=== PATIENT | female | born 2005 | race Hispanic/Latino ===

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

== ENCOUNTER 2025-06-25 17:23 | Emergency (ER) | payer OTHER ==
[2025-06-25] MEDS ORDERED: LIDOCAINE 1% MPF 5 ML VIAL ONE (17:35)
--- NOTE | 2025-06-25 18:05 | EDPHYS ---
Physician Documentation [facility] Name: Suzi Wiggins Age: 20 yrs Sex: Female : 2005 Arrival Date: 06/25/2025 Time: 17:23 Bed 7 Private MD: ED Physician Alvin Watson HPI: 06/25 18:05 This 20 yrs old Female presents to ER via Unassigned with complaints of sb4 Bartholin's Cyst. 18:05 Patient presents with complaint of a recurrence of her Bartholin cyst. She states she sb4 developed 1 about a month ago came here and had it drained. States that she did have a Word catheter in the eventually fell out. She states that the cyst went away completely as far as she knows. She states that she felt it pop back up yesterday. 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 - Infectious Disease History:: Denies. - Social history:: Smoking status: Reported history of juuling and/or vaping. Patient uses alcohol, occasionally. ROS: 18:05 Positive for per HPI, sb4 18:05 Constitutional: Negative for fever, chills, and weight loss, 18:05 All other systems are negative, Exam: 18:05 Constitutional: This is a well developed, well nourished patient who is awake, alert, sb4 and in no acute distress. Head/Face: Normocephalic, atraumatic. Eyes: Extra-ocular motions intact. Periorbital areas with no swelling, redness, or edema. ENT: Mucous membranes moist. Respiratory: No increased work of breathing, no retractions or nasal flaring. Skin: Warm, dry with normal turgor. Normal color with no rashes, no lesions, and no evidence of cellulitis. 18:05 : Pelvic Exam: External exam: Bartholin's cyst present, the nurse was present for the exam, Vital Signs: 18:03 BP 126 / 93; Pulse 113; Resp 18; Temp 100; Pulse Ox 99% on R/A; kb4 18:03 Weight 77.11 kg; Height 5 ft. 0 in. ; Pain 6/10; kb4 18:03 Body Mass Index 33.20 (77.11 kg, 152.4 cm) - Percentile 96.1 % kb4 18:03 Pain Scale: Adult kb4 Procedures: 18:05 I \T\ D: Incision and drainage was performed for an abscess of the right Bartholin's sb4 gland. Prepped with Betadine, Anesthetized with 3 ml's 1% Lidocaine. Incised with #11 blade. Drained moderate amount purulent fluid. Packed with word catheter. Dressing: None the patient tolerated the procedure well. MDM: 17:27 Medical Screening Exam initiated sb4 18:06 Differential diagnosis: bartholin cyst, bartholin abscess, labial abscess, cellulitis. sb4 Data reviewed: vital signs, nurses notes, and as a result, I will discharge patient. Counseling: I had a detailed discussion with the patient and/or guardian regarding the historical points, exam findings, and any diagnostic results supporting the discharge/admit diagnosis, the need for outpatient follow up, for definitive care, to return to the emergency department if symptoms worsen or persist or if there are any questions or concerns that arise at home. Administered Medications: 17:45 Drug: Lidocaine Infiltration (1 %) 5 mg Infiltration once Route: Infiltration; kb4 18:21 Follow up: Response: No adverse reaction kb4 18:20 Drug: Trimethoprim-Sulfamethoxazole PO (160 mg-800 mg (DS) 1 tablet PO once Route: PO; kb4 18:21 Follow up: Response: Medication administered at discharge. kb4 18:20 Drug: Acetaminophen PO 1000 mg PO once Route: PO; kb4 18:20 Follow up: Response: Medication administered at discharge. kb4 18:20 Drug: Ibuprofen PO 800 mg PO once Route: PO; kb4 18:20 Follow up: Response: Medication administered at discharge. kb4 Disposition Summary: 06/25/25 18:04 Discharge Ordered Notes: Location: Home sb4 Problem: new sb4 Symptoms: have improved sb4 Condition: Stable sb4 Diagnosis - Abscess of Bartholin's gland sb4 Followup: sb4 - With: Emergency Department - When: As needed - Reason: Fever > 102 F, Worsening of condition Followup: sb4 - With: Sun Gillette MD - When: As needed - Reason: Recheck today's complaints, Re-evaluation by your physician Discharge Instructions: - Discharge Summary Sheet sb4 - Bartholin's Cyst sb4 - Skin Abscess, [id number] sb4 - Incision and Drainage, Care After sb4 Forms: - Antibiotic Education sb4 - Patient Portal Instructions sb4 - Leadership Thank You Letter sb4 Prescriptions: - Bactrim DS 800-160 mg Oral tablet - take 1 tablet ORAL route every 12 hours for 10 days; 20 tablet; Refills: 0, sb4 Product Selection Permitted Signatures: Chastity Ballard PA-C PA-C sb4 Erin Valencia, RN RN kb4
[2025-06-25] MEDS ORDERED: ACETAMINOPHEN 500 MG TAB ONE (18:15)
[2025-06-25] MEDS ORDERED: SMZ./TMP. 800/160 MG TABLET ONE (18:15)
[2025-06-25] MEDS ORDERED: IBUPROFEN 400 MG TAB ONE (18:15)
--- NOTE | 2025-06-25 18:22 | ER ---
Nurse's Notes [facility] Name: Suzi Wiggins Age: 20 yrs Sex: Female : 2005 Arrival Date: 06/25/2025 Time: 17:23 Bed 7 Private MD: Diagnosis: Abscess of Bartholin's gland Presentation: 06/25 18:03 Chief complaint: Patient states: vaginal pain x2-3days. Coronavirus screen: At this kb4 time, unable to obtain information related to travel outside the [place] Ebola Screen: No symptoms or risks identified at this time. Initial Sepsis Screen: Does the patient meet any 2 criteria? HR > 90 bpm. No. Patient's initial sepsis screen is negative. Does the patient have a suspected source of infection? No. Patient's initial sepsis screen is negative. Risk Assessment: Do you want to hurt yourself or someone else? Patient reports no desire to harm self or others. Onset of symptoms was June 22, 2025. 18:03 Method Of Arrival: Ambulatory kb4 18:03 Acuity: WAYLON 4 kb4 Triage Assessment: 18:06 General: Appears in no apparent distress. uncomfortable, Behavior is calm, cooperative. kb4 Pain: Complains of pain in left labia minora. 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 - Infectious Disease History:: Denies. - Social history:: Smoking status: Reported history of juuling and/or vaping. Patient uses alcohol, occasionally. Screenin:09 [facility] ED Fall Risk Assessment (Adult) History of falling in the last 3 months, kb4 including since admission No falls in past 3 months (0 pts) Confusion or Disorientation No (0 pts) Intoxicated or Sedated No (0 pts) Impaired Gait No (0 pts) Mobility Assist Device Used No (0 pt) Altered Elimination No (0 pt) Score/Fall Risk Level 0 - 2 = Low Risk. Abuse screen: Denies threats or abuse. Denies injuries from another. Nutritional screening: No deficits noted. Tuberculosis screening: No symptoms or risk factors identified. Assessment: 18:07 Reassessment:. General: Appears in no apparent distress. uncomfortable, Behavior is kb4 calm, cooperative. Pain: Complains of pain in left labia minora. Neuro: Level of Consciousness is awake, alert, obeys commands, Oriented to person, place, time, situation. Cardiovascular: Patient's skin is warm and dry. Respiratory: Airway is patent Respiratory effort is even, unlabored, Respiratory pattern is regular, symmetrical. Derm: Skin is pink, warm \T\ dry. Vital Signs: 18:03 BP 126 / 93; Pulse 113; Resp 18; Temp 100; Pulse Ox 99% on R/A; kb4 18:03 Weight 77.11 kg; Height 5 ft. 0 in. ; Pain 6/10; kb4 18:03 Body Mass Index 33.20 (77.11 kg, 152.4 cm) - Percentile 96.1 % kb4 18:03 Pain Scale: Adult kb4 ED Course: 17:25 Patient arrived in ED. mr 17:26 Chastity Ballard PA-C is PHCP. sb4 17:26 Alvin Watson MD is Attending Physician. sb4 18:03 Erin Valencia RN is Primary Nurse. kb4 18:04 Sun Gillette MD is Referral Physician. sb4 18:06 Triage completed. kb4 18:06 Arm band placed on right wrist. kb4 18:09 Patient has correct armband on for positive identification. Call light in reach. kb4 Provided Education on: d/c ppwk. 18:09 Assist provider with I \T\ D: of an abscess on left Bartholin's gland. Patient did not kb4 have IV access during this emergency room visit. Administered Medications: 17:45 Drug: Lidocaine Infiltration (1 %) 5 mg Infiltration once Route: Infiltration; kb4 18:21 Follow up: Response: No adverse reaction kb4 18:20 Drug: Trimethoprim-Sulfamethoxazole PO (160 mg-800 mg (DS) 1 tablet PO once Route: PO; kb4 18:21 Follow up: Response: Medication administered at discharge. kb4 18:20 Drug: Acetaminophen PO 1000 mg PO once Route: PO; kb4 18:20 Follow up: Response: Medication administered at discharge. kb4 18:20 Drug: Ibuprofen PO 800 mg PO once Route: PO; kb4 18:20 Follow up: Response: Medication administered at discharge. kb4 Medication: 18:21 VIS not applicable for this client. kb4 Outcome: 18:04 Discharge ordered by . lovely4 18:21 Discharged to home ambulatory, kb4 18:21 Condition: good 18:21 Discharge instructions given to patient, Instructed on discharge instructions, follow up and referral plans. medication usage, Demonstrated understanding of instructions, follow-up care, medications, Prescriptions given X 1, 18:21 Patient left the ED. kb4 Signatures: Prerna Vargas, Reg Reg mr Chastity Ballard, PAJoshC PAJoshC lovely4 Erin Valencia, RN RN kb4
[2025-06-25 18:41] VITALS: BP 126/93; TEMP 100; O2SAT 99
== END 2025-06-25 18:21 | disposition home or self-care (01) ==
LOC: ER 17:23
DX: N75.1 Abscess of Bartholin's gland (principal)
CPT/HCPCS: 10060; 99283; J2003